=== PATIENT | female | born 1980 | race Caucasian/White ===

== ENCOUNTER 2016-12-26 14:51 | Emergency (ER) | payer MEDICAID, OTHER ==
[2016-12-26 14:51] VITALS: BMI 40.7
[2016-12-26 15:01] VITALS: TEMP 98.1
[2016-12-26] MEDS ORDERED: Sodium Chloride 0.9% 1,000 ML IV STA (15:22)
--- NOTE | 2016-12-26 15:35 | C.PDOC ---
History Of Present Illness 12/26/2016 Lilliam Sears is a 36 y/o female, whose past medical history includes gastritis , presents to the ED complaining of left sided head pain for one week that has been intermittent. Patient reports that she has light sensitivity and dizziness that is worse with movement. In addition patient says she has numbness on her arms. Patient denies fever, chills, cough, nausea, vomiting, diarrhea, or abdominal pain. Patient also reports mild chest discomfort on the left side that began yesterday morning. Time Seen by Provider: 12/26/16 15:06 Chief Complaint (Nursing): Headache History Per: Patient History/Exam Limitations: no limitations Onset/Duration Of Symptoms: Days (7 days), Intermittent Episodes Current Symptoms Are (Timing): Still Present Preceeding Symptoms: Visual Disturbances Past Medical History Reviewed: Historical Data, Nursing Documentation, Vital Signs Vital Signs: Last Vital Signs Temp 98.1 F 12/26/16 14:59 Pulse 80 12/26/16 14:59 Resp 20 12/26/16 14:59 BP 112/77 12/26/16 14:59 Pulse Ox 96 12/26/16 15:41 - Medical History PMH: Gastritis - [facility] Procedures LOW CERVICAL (09/13/14) Family History: States: Unknown Family Hx - Social History Hx Alcohol Use: No Hx Substance Use: No - Immunization History Hx Tetanus Toxoid Vaccination: Yes Hx Influenza Vaccination: No Hx Pneumococcal Vaccination: No Review Of Systems Constitutional: Negative for: Fever Cardiovascular: Positive for: Chest Pain (mild chest discomfort on left side) Gastrointestinal: Negative for: Nausea, Vomiting, Abdominal Pain Genitourinary: Negative for: Dysuria, Frequency Neurological: Positive for: Headache (left sided head pain), Dizziness Physical Exam - Physical Exam Additional Physical Exam Comments: Constitutional: No acute distress. Head: Normocephalic. Atraumatic. Eyes: PERRL. No Nystagmus. ENT: Moist mucous membranes. Neck: Supple. Cardiovascular: Regular rate. Radial pulses 2+ bilaterally. Chest: No tenderness. Respiratory: Clear to auscultation bilaterally. GI: Soft. Nontender. Nondistended. Back: No CVA tenderness. Musculoskeletal: No tenderness or swelling of extremities. Skin: No rash. Neurologic: Alert, no focal deficit. Oriented x 3. Cranial nerves II-XII intact. Sensation to light touch intact bilaterally. Motor 5/5 x 4. Gait normal. Romberg negative. Finger to nose, heel to wolfe, and rapid alternating movements normal. kernig and brudzinski negative. Negative Union-Hallpike. ED Course And Treatment - Laboratory Results Result Diagrams: 12/26/16 15:53 12/26/16 15:53 O2 Sat by Pulse Oximetry: 96 (air room) Pulse Ox Interpretation: Normal Medical Decision Making Medical Decision Makin12/26/2016 Impression: 36 y/o female with left sided head pain and dizziness. Plan: -- CXR -- Labs -- Urinalysis -- Antivert, Reglan, Sodium Chloride, Toradol, and Tylenol -- Reassess and disposition Patient states she feels much better after 2.5 hours in ED and would like to go home. Will discharge, instructed to f/u with PMD, instructed to return to the ED for worsening pain, fever, stiff neck, intractible vomiting, or any other problem. Disposition - Disposition Referrals: Shaik Bradley MD [Staff Provider] - Disposition: HOME/ ROUTINE Disposition Time: 17:19 Condition: STABLE Prescriptions: Famotidine [Pepcid] 1 tab PO BID #14 tab Ibuprofen [Motrin] 600 mg PO Q6 #25 tab Ondansetron ODT [Zofran ODT] 4 mg PO Q8 #12 odt Instructions: Acute Headache (ED) Forms: [facility] (Belarusian) - Clinical Impression Clinical Impression: Headache - Scribe Statement The provider has reviewed the documentation as recorded by the Scribe 12/26/2016 Scribe Attestation: Joyce Vizcaino MD Scribe Attestation: All medical record entries made by the Scribe were at my direction and personally dictated by me. I have reviewed the chart and agree that the record accurately reflects my personal performance of the history, physical exam, medical decision making, and the department course for this patient. I have also personally directed, reviewed, and agree with the discharge instructions and disposition.
[2016-12-26] MEDS ORDERED: Sodium Chloride 0.9% 1,000 ML ONE (15:37)
[2016-12-26 16:01] LABS: BASO # 0.1 K/uL (0.0-0.2); EOS # 0.1 K/uL (0.0-0.7); EOS % 0.8 % (0.0-4.0); HEMATOCRIT 35.9 % (34.0-47.0); LYMPH # 3.9 K/uL (1.0-4.3); LYMPH % 28.2 % (20.0-40.0); MEAN CELL VOLUME 81.1 fL (81.0-99.0); MEAN CORPUSCULAR HEMOGLOBIN 26.6 pg (27.0-31.0); MEAN CORPUSCULAR HGB CONC 32.8 g/dL (33.0-37.0); MEAN PLATELET VOLUME 8.1 fL (7.2-11.7); MONO % 6.8 % (0.0-10.0); RED CELL DISTRIBUTION WIDTH 16.3 % (11.5-14.5)
[2016-12-26 16:08] LABS: CHLORIDE 103 mmol/L (98-107)
[2016-12-26 16:09] LABS: POTASSIUM 4.6 mmol/L (3.6-5.2); SODIUM 137 mmol/L (132-148)
[2016-12-26 16:11] LABS: AST/SGOT 30 U/L (14-36); BILIRUBIN,TOTAL 0.7 mg/dL (0.2-1.3); BLOOD UREA NITROGEN 10 mg/dL (7-17); CARBON DIOXIDE 22 mmol/L (22-30); GFR AFRICAN-AMERICAN > 60; TOTAL PROTEIN 7.8 g/dL (6.3-8.3)
[2016-12-26 16:12] LABS: ALKALINE PHOSPHATASE 104 U/L (38-126); ALT/SGPT 30 U/L (9-52); CALCIUM 8.8 mg/dl (8.6-10.4); GLUCOSE,RANDOM 75 mg/dL (65-105)
[2016-12-26 16:25] LABS: URINE BILIRUBIN NEGATIVE (NEGATIVE); URINE BLOOD 1+ (NEGATIVE); URINE COLOR Yellow (YELLOW); URINE GLUCOSE (UA) NORMAL (Normal); URINE KETONE NEGATIVE (NEGATIVE); URINE LEUKOCYTE ESTERASE TRACE Leu/uL (Negative); URINE PROTEIN NEGATIVE (NEGATIVE); URINE UROBILINOGEN NORMAL mg/dL (0.2-1.0); WBC URINE 1 /hpf (0-5)
[2016-12-26 17:37] VITALS: BP 131/83; PULSE 75; RESP 18; O2SAT 100
--- NOTE | 2016-12-26 17:37 | RAD ---
HISTORY: chest pain COMPARISON: Prior chest radiographs 11/20/2012 TECHNIQUE: Chest PA and lateral FINDINGS: LUNGS: Diminished history volume identified. No acute infiltrate. PLEURA: No significant pleural effusion identified. No pneumothorax apparent. CARDIOVASCULAR: Upper limits of normal cardiac silhouette may be a function of diminished inspiratory volume. Pulmonary vascular appears normal nevertheless. OSSEOUS STRUCTURES: No significant abnormalities. VISUALIZED UPPER ABDOMEN: Normal. OTHER FINDINGS: None. IMPRESSION: Diminished inspiratory volume. No acute infiltrate or pleural effusion identified bilaterally.
== END 2016-12-26 17:37 | disposition home or self-care (01) ==
LOC: C.ER 14:51
DX: R51 Headache (principal)
CPT/HCPCS: 71020; 80053; 81001; 82550; 82553; 84484; 84703; 85025; 96361; 96374; 96375; 99285; J1885; J2765; J7040

== ENCOUNTER 2018-01-02 11:33 | Emergency (ER) | payer MEDICAID ==
[2018-01-02 11:51] VITALS: BMI 36.9
[2018-01-02 12:18] LABS: SQUAMOUS EPITHIAL 4 /hpf (0-5); URINE BILIRUBIN NEGATIVE (NEGATIVE); URINE BLOOD NEGATIVE (NEGATIVE); URINE CLARITY Hazy (Clear); URINE COLOR Amber (YELLOW); URINE GLUCOSE (UA) NORMAL (Normal); URINE LEUKOCYTE ESTERASE NEG Leu/uL (Negative); URINE PROTEIN NEGATIVE (NEGATIVE); URINE UROBILINOGEN NORMAL mg/dL (0.2-1.0)
[2018-01-02 12:21] LABS: HCG,QUALITATIVE URINE POSITIVE (NEGATIVE)
--- NOTE | 2018-01-02 12:41 | C.PDOC ---
History Of Present Illness 37 y/o female presents to the ED complaining of left-sided abdominal pain since last night. Associated with dysuria. Patient states last week she had a positive home test, but has not had any care or seen an OB yet. LMP was 11/16/17. Otherwise she denies any vomiting, diarrhea, vaginal bleeding, discharge, fever, or chills. Prior surgical history is significant for x2 and bariatric surgery a few months ago. Time Seen by Provider: 01/02/18 12:16 Chief Complaint (Nursing): Female Genitourinary History Per: Patient History/Exam Limitations: no limitations Onset/Duration Of Symptoms: Days Current Symptoms Are (Timing): Still Present Associated Symptoms: Urinary Symptoms Abnormal Vaginal Bleeding: No : 3 Para: 2 Miscarriage: 0 Past Medical History Reviewed: Historical Data, Nursing Documentation, Vital Signs Vital Signs: Last Vital Signs Temp 98.9 F 01/02/18 15:14 Pulse 65 01/02/18 15:14 Resp 16 01/02/18 15:14 BP 108/69 01/02/18 15:14 Pulse Ox 99 01/02/18 15:27 - Medical History PMH: Gastritis Surgical History: Other Surgeries: Bariatric surgery - [facility] Procedures LOW CERVICAL (09/13/14) Family History: States: Unknown Family Hx - Social History Hx Alcohol Use: No Hx Substance Use: No - Immunization History Hx Tetanus Toxoid Vaccination: Yes Hx Influenza Vaccination: No Hx Pneumococcal Vaccination: No Review Of Systems Except As Marked, All Systems Reviewed And Found Negative. Constitutional: Negative for: Fever, Chills Eyes: Negative for: Vision Change Cardiovascular: Negative for: Chest Pain Respiratory: Negative for: Shortness of Breath Gastrointestinal: Positive for: Abdominal Pain. Negative for: Vomiting, Diarrhea Genitourinary: Positive for: Dysuria. Negative for: Vaginal Discharge, Vaginal Bleeding Musculoskeletal: Negative for: Back Pain Neurological: Negative for: Weakness, Headache, Dizziness Physical Exam - Physical Exam Appears: Non-toxic, No Acute Distress Skin: Normal Color, Warm, Dry Head: Atraumatic, Normacephalic Eye(s): bilateral: Normal Inspection, PERRL, EOMI Nose: Normal Oral Mucosa: Moist Neck: Normal ROM Chest: Symmetrical Cardiovascular: Rhythm Regular, No Murmur Respiratory: Normal Breath Sounds, No Rhonchi, No Wheezing, Other (NARD) Gastrointestinal/Abdominal: Soft, Tenderness (mild left pelvic and LLQ tenderness), No Distention, No Guarding Back: Normal Inspection, No CVA Tenderness, No Vertebral Tenderness Extremity: Bilateral: Atraumatic, Normal Color And Temperature, Normal ROM Neurological/Psych: Oriented x3, Normal Speech ED Course And Treatment - Laboratory Results Result Diagrams: 01/02/18 12:47 01/02/18 12:47 O2 Sat by Pulse Oximetry: 99 (RA) Pulse Ox Interpretation: Normal - CT Scan/US OB Ultrasound Other Rad Studies (CT/US): Read By Radiologist, Radiology Report Reviewed CT/US Interpretation: Accession No. : [id number]. Patient Name / ID : YARY MARTINI / [id number]. Exam Date : 01/02/2018 13:15:23 ( Approved ). Study Comment : Sex / Age : F / 37Y. Creator : Mahesh Thorpe MD. Dictator : Oracle Adf Developer : Preventive Maintenance Coordinator : Mahesh Thorpe MD. Approver2 : Report Date : 01/02/2018 14:57:52. My Comment : . Date of service: 2017. PROCEDURE: OB Pelvic Ultrasound. HISTORY: Left pelvic pain. LMP: . COMPARISON: Comparison made with prior pelvic ultrasound 09/26/2015. FINDINGS: UTERUS: Gestational sac: MSD = 3.1 cm = 8 weeks 1 day. pole : CRL = 1.56 cm = 8 weeks 0 day. Yolk sac: ? 0.46 cm. Heart rate: 172 bpm. age (Ultrasound estimated): 8 weeks 1 day 0 weeks 4 days. Hattie- gestational hemorrhage: None. Date of delivery (Ultrasound estimated) : 2018. Uterus measures 10.6 x 7.4 x 7.8 cm. Normal in size and appearance. Retroverted. Small anterior lower uterine body fibroid measuring 2.6 x 1.8 x 2.6 cm. CERVIX: Measures 4.58 cm. Long and closed. No cervical abnormality seen. RIGHT OVARY: Measures 4.0 x 4.4 x 4.0 cm. No mass lesion. Normal flow. Small cyst measuring 2.1 x 2.5 x 2.2 cm. LEFT OVARY: Not visualized. FREE FLUID: .No free fluid. OTHER FINDINGS: None. IMPRESSION: Single living intrauterine gestation estimated approximately 8 weeks 4 day 0 weeks 1 day. Heart rate documented at 172 BPM. Small anterior uterine fibroid. Small right ovarian cyst left ovary not visualized the Medical Decision Making Medical Decision Making: Impression: Abdominal pain during , rule out ectopic Initial Plan: --Blood work with Beta quant --UA --Urine HCG --/OB US Patient advised that the focus of ER evaluation is to rule out ectopic. If patient continues to have persistent symptoms, she needs to follow up with [facility]. Labs reviewed: Beta-HCG 13954.00, UA is negative. Ultrasound results discussed w/ patient. Provided with copy of report. Disposition Counseled Patient/Family Regarding: Studies Performed, Diagnosis, Need For Followup - Disposition Referrals: YOUR,OBGYN [Other] [facility] [Outside] [facility] [Outside] Disposition: HOME/ ROUTINE Disposition Time: 15:20 Condition: GOOD Instructions: Threatened Miscarriage (DC) Forms: [facility] (Kiswahili) Print Language: SERBIAN - Clinical Impression Clinical Impression: Threatened miscarriage - Scribe Statement The provider has reviewed the documentation as recorded by the Izzy Palma Provider Attestation: All medical record entries made by the Izzy were at my direction and personally dictated by me. I have reviewed the chart and agree that the record accurately reflects my personal performance of the history, physical exam, medical decision making, and the department course for this patient. I have also personally directed, reviewed, and agree with the discharge instructions and disposition.
[2018-01-02 12:57] LABS: BASO # 0.1 K/uL (0.0-0.2); BASO % 0.8 % (0.0-2.0); EOS % 0.2 % (0.0-4.0); HEMOGLOBIN 10.9 g/dL (11.0-16.0); LYMPH % 21.3 % (20.0-40.0); MEAN CELL VOLUME 82.9 fL (81.0-99.0); MEAN CORPUSCULAR HEMOGLOBIN 27.9 pg (27.0-31.0); MEAN CORPUSCULAR HGB CONC 33.7 g/dL (33.0-37.0); MEAN PLATELET VOLUME 8.6 fL (7.2-11.7); MONO # 0.6 K/uL (0.0-0.8); MONO % 6.5 % (0.0-10.0); NEUT # 6.7 K/uL (1.8-7.0); NEUT % 71.2 % (50.0-75.0); RBC 3.91 Mil/uL (3.80-5.20); RED CELL DISTRIBUTION WIDTH 17.2 % (11.5-14.5); WHITE BLOOD COUNT 9.5 K/uL (4.8-10.8)
[2018-01-02 13:15] LABS: ALB/GLOB RATIO 1.2 (1.0-2.1); ALBUMIN 3.5 g/dL (3.5-5.0); ALT/SGPT 32 U/L (9-52); AST/SGOT 12 U/L (14-36); BLOOD UREA NITROGEN 8 mg/dL (7-17); CALCIUM 9.1 mg/dl (8.6-10.4); GFR NON-AFRICAN AMERICAN > 60
--- NOTE | 2018-01-02 15:00 | US ---
Date of service: 01/02/2018 PROCEDURE: OB Pelvic Ultrasound HISTORY: Left pelvic pain LMP: 11/16/2017 COMPARISON: Comparison made with prior pelvic ultrasound 09/26/2015. FINDINGS: UTERUS: Gestational sac: MSD = 3.1 cm = 8 weeks 1 day. pole: CRL = 1.56 cm = 8 weeks 0 day Yolk sac: ? 0.46 cm Heart rate: 172 bpm. age (Ultrasound estimated): 8 weeks 1 day 0 weeks 4 days Hattie-gestational hemorrhage: None. Date of delivery (Ultrasound estimated) : 08/13/2018 Uterus measures 10.6 x 7.4 x 7.8 cm. Normal in size and appearance. Retroverted. Small anterior lower uterine body fibroid measuring 2.6 x 1.8 x 2.6 cm CERVIX: Measures 4.58 cm. Long and closed. No cervical abnormality seen. RIGHT OVARY: Measures 4.0 x 4.4 x 4.0 cm. No mass lesion. Normal flow. Small cyst measuring 2.1 x 2.5 x 2.2 cm LEFT OVARY: Not visualized FREE FLUID: .No free fluid. OTHER FINDINGS: None. IMPRESSION: Single living intrauterine gestation estimated approximately 8 weeks 4 day 0 weeks 1 day. Heart rate documented at 172 BPM. Small anterior uterine fibroid. Small right ovarian cyst left ovary not visualized the
[2018-01-02 15:15] VITALS: BP 108/69; PULSE 65; RESP 16
[2018-01-02 15:17] VITALS: TEMP 98.9
[2018-01-02 15:21] VITALS: O2SAT 99
== END 2018-01-02 15:34 | disposition home or self-care (01) ==
LOC: C.ER 11:33
DX: O20.0 Threatened abortion (principal); Z3A.08 8 weeks gestation of pregnancy

== ENCOUNTER 2018-08-01 07:22 | Inpatient (IN) | payer MEDICAID ==
[2018-08-01 07:37] VITALS: BMI 35.1
[2018-08-01] MEDS ORDERED: Sodium Citrate/Citric Acid 15 ml Sol PO ONE (07:45)
[2018-08-01] MEDS ORDERED: Lactated Ringer's 1,000 ML IV ONE (07:45)
[2018-08-01] MEDS ORDERED: cefOXitin IV 2 gm in Dextrose 2 GM/50 ML BAG IVPB ONE ×2 (07:45→08:43)
[2018-08-01 08:17] LABS: BASO % 0.4 % (0.0-2.0); EOS # 0.1 K/uL (0.0-0.7); EOS % 0.5 % (0.0-4.0); HEMOGLOBIN 11.2 g/dL (11.0-16.0); LYMPH # 2.8 K/uL (1.0-4.3); LYMPH % 24.1 % (20.0-40.0); MEAN CELL VOLUME 86.5 fL (81.0-99.0); MEAN CORPUSCULAR HEMOGLOBIN 27.5 pg (27.0-31.0); MEAN CORPUSCULAR HGB CONC 31.8 g/dL (33.0-37.0); MEAN PLATELET VOLUME 8.4 fL (7.2-11.7); MONO # 0.6 K/uL (0.0-0.8); MONO % 5.5 % (0.0-10.0); NEUT # 8.1 K/uL (1.8-7.0); NEUT % 69.5 % (50.0-75.0); RBC 4.07 Mil/uL (3.80-5.20); RED CELL DISTRIBUTION WIDTH 16.7 % (11.5-14.5); WHITE BLOOD COUNT 11.7 K/uL (4.8-10.8)
[2018-08-01 08:20] LABS: SQUAMOUS EPITHIAL 27 /hpf (0-5); URINE BACTERIA RARE (<OCC); URINE BILIRUBIN NEGATIVE (NEGATIVE); URINE BLOOD NEGATIVE (NEGATIVE); URINE CLARITY Hazy (Clear); URINE COLOR Amber (YELLOW); URINE GLUCOSE (UA) NORMAL (Normal); URINE LEUKOCYTE ESTERASE NEG Leu/uL (Negative); URINE PROTEIN 1+ mg/dL (NEGATIVE)
[2018-08-01 08:36] LABS: BARBITURATES, UR NEGATIVE (NEGATIVE); BENZODIAZEPINES, UR NEGATIVE (NEGATIVE); OPIATES, UR NEGATIVE (NEGATIVE); PHENCYCLIDINE, UR NEGATIVE (NEGATIVE)
[2018-08-01 08:37] LABS: ALB/GLOB RATIO 1.2 (1.0-2.1); ALBUMIN 3.5 g/dL (3.5-5.0); AST/SGOT 16 U/L (14-36); BLOOD UREA NITROGEN 7 mg/dL (7-17); CALCIUM 8.8 mg/dl (8.6-10.4); GFR NON-AFRICAN AMERICAN > 60
[2018-08-01 08:39] LABS: ALT/SGPT < 6 U/L (9-52)
[2018-08-01] MEDS ORDERED: Sodium Citrate/Citric Acid 15 ml Sol ONE (08:42)
[2018-08-01] MEDS ORDERED: Oxytocin 10 Units/ml Inj ONE ×2 (08:43→10:31)
[2018-08-01] MEDS ORDERED: Oxytocin 20 units in LR 2,000 ML IV ONE (08:43)
[2018-08-01] MEDS ORDERED: EPINEPHrine 1 mg/ml (1:1000) Inj ONE (09:03)
[2018-08-01] MEDS ORDERED: Morphine 1 mg/ml preservative-free Inj(Duramorph) ONE (09:03)
[2018-08-01] MEDS ORDERED: Naloxone 0.4 mg/ml Inj (Adult) IVP PRN (11:06)
--- NOTE | 2018-08-01 11:51 | OBDS ---
DELIVERY PERSONNEL Delivery Doctor: Robert Amezquita DO Scrub Nurse: Velma Gastelum Geneticist: Yesenia Leahy RN Anesthesiologist: John Christopher MD MATERNAL INFORMATION Delivery Anesthesia: Spinal Medications in Delivery: pitocin 40units x2 as per MD order Placenta Cultured: No Maternal Complications: None Provider Comments: Repeat LTC Section with delivery of a viable Male from TASHA posit ion and after reducing a loose CNC x 1. Apgars 9_9 and BW 8lbs. Right Fallopian Tubal Ligation with EndoSeal. No Left Fallopian tube identified and pt gave Hx of left adnexa removed in 2009. Extensive RICKY required EBL 600 mls Pt and tolerated the procedure well and both left the OR in Stable and Stisfactory conditi on. Dr. Contreras assisted the entire case from beginning to end. Dr Valenzuela, Engineering Specialist Technician attended the LABOR SUMMARY EDC: 08/06/2018 00:00 No. Babies in Womb: 1 Attempted: No Labor Anesthesia: None LABOR INFORMATION Reason for Induction: Not Applicable Other Ripening Agents: n/a Oxytocin: N/A Group B Beta Strep: Negative Steroids Given: None Reason Steroids Not Administered: Not Applicable MEMBRANES Membranes Rupture Method: Artificial Rupture of Membranes: 08/01/2018 09:38 Length of Rupture (hrs): 0.00 Amniotic Fluid Color: Clear Amniotic Fluid Amount: Moderate Amniotic Fluid Odor: Normal STAGES OF LABOR Stage 3 hrs: 0 Stage 3 min: 1 CSECTION DELIVERY Primary Indication: Repeat Elective Secondary Indication: Repeat Elective CSection Urgency: Elective CSection Incidence: Repeat Labor: No Labor Elective: Elective CSection Incision: Lower Uterine Transverse BABY A INFORMATION Infant Delivery Date/Time: 08/01/2018 09:38 Method of Delivery: Born in Route : No : N/A Forceps: N/A Vacuum Extraction: N/A Shoulder Dystocia : No SHOULDER DYSTOCIA BABY A Delivery Date/Time: 08/01/2018 09:38 PRESENTATION/POSITION BABY A Presentation: Cephalic Cephalic Presentation: Vertex Vertex Position: Right Occipital Anterior Breech Presentation: N/A PLACENTA INFORMATION BABY A Placenta Delivery Time : 08/01/2018 09:39 Placenta Method of Delivery: Manual Removal Placenta Status: Delivered SCORES BABY A Heart Rate 1 min: >100 bpm Resp Effort 1 min: Good Cry Reflex Irritability 1 min: Cough or Sneeze or Pulls Away Muscle Tone 1 min: Active Motion Color 1 min: Body Mead, Extremities Blue SCORE 1 MIN: 9 Heart Rate 5 min: >100 bpm Resp Effort 5 min: Good Cry Reflex Irritability 5 min: Cough or Sneeze or Pulls Away Muscle Tone 5 min: Active Motion Color 5 min: Body Mead, Extremities Blue SCORE 5 MIN: 9 INFORMATION BABY A Gestational Age at Delivery: 39.2 Gestational Status: Term Infant Outcome : Liveborn Infant Condition : Stable Sex: Male IDENTIFICATION/MEDS BABY A ID Band Number: [id number] ID Band Location: Left Leg; Left Arm Sensor Applied: Yes Sensor Number: [id number] Sensor Location : Cord Clamp Vitamin K Given : Left Thigh Erythromycin Given: Given Both Eyes WEIGHT/LENGTH BABY A Infant Birthweight (gms): 3620 Weight (lb): 8 Weight (oz): 0 Infant Length Inches: 19.00 Length cms: 48.3 CORD INFORMATION BABY A No. Cord Vessels: 3 Nuchal Cord : Around Neck x1, Loose Cord pH Baby Arterial: 7.19 Cord pH Baby Venous: 7.28 Cord Blood Taken: Yes Infant Suction: Mouth; Nose ASSESSMENT BABY A Infant Complications: None Physical Findings at Delivery: Within Normal Limits Infant Respirations: Appears Normal Poultry Sexer/ALS Called : Yes Care By: phong rabago rn Transferred To: Remains with Mother
[2018-08-01] MEDS ORDERED: Oxycodone/Acetaminophen 5/325 mg Tab PO PRN (13:44)
[2018-08-01] MEDS ORDERED: Oxytocin 30 UNIT in NS 500 ml 30 UNITS/500 ML BAG IV SCH (14:00)
--- NOTE | 2018-08-01 14:32 | OBADHP ---
Datetime: 08/01/2018 08:53 Admit Comment, IP Provider: 38 y/o F at 39.2 weeks gestation presented to L_D for schedul ed repeat . Pt has been followed prenatally by [facility]. She has been taking pren atal vitamins, iron. She reports she had felt baby moving and felt contractions. She reports no acute complaints curren tly. She is denying fevers, chills, headache, dizziness, chest pain, palpitationns, shortness of carmel th, nausea, vomiting, constipation, diarrhea, dysuria, hematuria. Further denies LOF, VB or VD. OBHx: . 2 previous term pregnancies. 09/13/2014: 7.5lb F delivered via primary C/S @ 38wks. 10/02/2006: 7 lb boy delivered at 40wks via repeat C/S. First baby delivered via C/S d/t arrest of dila tion. Both children delivered at [facility] GynHx: Menarche: 12 y/o. LMP 11/16/17. YAIMA: 08/06/18. Regular periods every 30 days lasting 4-5 days, using about 10-12 pads. 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 Reports p revious IUD (doesn't recall which type) that was removed prior to this . PMH: Previous (+) PPD, CXR negative. All: NKDA PSH: 09/29/2017: "Gastric bypass", [place]. Reports no complications. 2009: Ovarian lemon-sized "myoma" removal, [place], denies complications. FH: Non-contributory SH: Denies smoking, ETOH, illicit drug use Hosp: denies recent hospitalizations Meds: Pre-carlos vitamins, pantoprazole 40mg, Ferrous sulfate OBGYN: [facility] Tool Grinder: Dr. Jim Amezquita. Vitals: T: BP: 106/78 P:94 SpO2:100% Physical Exam: As Noted Labs: 11.7>11.2/35.2<289 (08/01/18) Utox: (-) Assessment: 38 y/o AMA F at 39 weeks gestation presenting to L_D for repeat and BTL Plan: -pre-op CBC/CMP/U/A/Utox -LR 1L IVF bolus -empiric cefoxitin -Anesthesia consult -NST Reactive -obtain consent for C/S _ bilateral tubal ligation. Risks/benefits/alternatives have been explaine d in detail for both procedures Portuguese Interpretor # [id number] Case discussed with Dr. Alirio Aguilar PGY1 Pt seen and examined with Dr. Hardin and all of his findings and POC were fully discussed and agree d on. Pelvic Type - PN: Not Done Extremities - PN: Normal Abdomen - PN: Normal Back - PN: Not Done Breast - PN: Not Done Lungs - PN: Normal Heart - PN: Normal Thyroid - PN: Normal Neurologic - PN: Normal HEENT - PN: Normal General - PN: Normal Presentation-Admit: Vertex FHR - Baseline A Provider: 140 Membranes, Provider: Intact Comments, ACOG Physical Exam: Gen: WDWN, NAD Neuro: AxO x 3, No FND HEENT: Normocephalic, atraumatic, EOMI CV: RRR, S1/S2 present, no m/r/g Pulm: CTA b/l, u/l lobes Abd: Soft, non-distended, fundal height 38cm above PS. Previous low transverse incision site c/d/i EXT: trace non-pitting edema Gestation - Est Wks by US: 39.2 Vital Signs Provider: Reviewed IP Chief Complaint: Scheduled Section NICHD Variability Prov Fetus A: Moderate 6-25bpm NICHD Accel Fetus A IP Provider: 10X10 FHR Category Provider Fetus A: Category I NICHD Decel Fetus A IP Provider: None Genitourinary Exam: Not Done DTRs - PN: Not Done EGA AdmitDate IP: 39.2 IP Adm Impression: Term, intrauterine ; No Active Labor; Intact Membranes IP Admit Plan: Admit to unit; Initiate Section protocol
[2018-08-02 07:08] LABS: HEMOGLOBIN 9.5 g/dL (11.0-16.0); MEAN CELL VOLUME 86.5 fL (81.0-99.0); MEAN CORPUSCULAR HEMOGLOBIN 28.2 pg (27.0-31.0); MEAN CORPUSCULAR HGB CONC 32.6 g/dL (33.0-37.0); MEAN PLATELET VOLUME 8.2 fL (7.2-11.7); RBC 3.37 Mil/uL (3.80-5.20); RED CELL DISTRIBUTION WIDTH 16.3 % (11.5-14.5)
[2018-08-02] MEDS: Prenatal Multivit/Folic Acid/Iron Tab PO SCH (10:04)
--- NOTE | 2018-08-02 21:18 | OBPPN ---
Datetime: 08/02/2018 07:46 PP Pain Prov: Within normal limits PP Nausea Prov: Denies PP Flatus Prov: No PP BM Prov: No PP Breasts Prov: Not Done PP Heart Prov: Normal PP Lungs Prov: Normal PP Abdomen/Uterus Prov: Normal PP Lochia Prov: Normal PP Vulva/Perineum Prov: Not Done PP CVA Tenderness Prov: Not Done PP Extremities Prov: Normal PP C/S Incision Prov: Normal PP Progress Prov: Normal PP Comments Phys Exam Prov: General: AAO X 3, NAD Lungs: CTA b/l Heart: RRR, normal S1, S2 Abdomen: Soft, non-tender, non-distended. Fundal height one finger breadth below the umbilicus, fi rm, and non-tender. [place] in place, dressing C/D/I Extremities: No edema or tenderness noted Dressing clean, dry and intact PP Impression Prov: Normal progression PP Plan Prov: Continue present management PP Progress Note Prov: Patient was seen and examined at bedside. No acute events overnight as per pa susu and nursing staff. Patient is not complaining of any pain, she did not ask for Motrin or Percoc et overnight. Lochia is minimal, she admits to changing 3 pads yesterday. She is tolerating diet with out nausea or vomiting. She denies having any bowel movements but admits to flatus. She is ambulating from bed to chair and to the bathroom without any issues. Baby is with good latch. She denies fevers, chills, dizziness, shortness of breath, chest pain, abdominal pain, or urinary sympto ms. VS: T: 97.1, HR: 87, BP: 92/60, O2: 99% General: AAO X 3, NAD Lungs: CTA b/l Heart: RRR, normal S1, S2 Abdomen: Soft, non-tender, non-distended. Fundal height one finger breadth below the umbilicus, fi rm, and non-tender. [place] in place, dressing C/D/I Extremities: No edema or tenderness noted Assessment: Patient is a 38 year old female s/p repeat and BTL POD #1. Patient i s stable and afebrile. Plan: - Pain controlled with Motrin - Encourage ambulation, hydration, and - Incentive spirometer use - Diet advanced to regular - Stable and Satisfactory condition and recovery - Continue routine post-operative care Patient seen and case discussed with attending, Dr. Amezquita. Ismael Henry, PGY-1 Pt seen and examined with Dr. Guevara and all of his findings and POC were fully discussed with him and agreed on. IP PP Procedures: Tubal Ligation Vital Signs Provider PP: Reviewed; Within Normal Limits
[2018-08-03] MEDS: Prenatal Multivit/Folic Acid/Iron Tab PO SCH (09:18)
--- NOTE | 2018-08-03 17:59 | OBPPN ---
Datetime: 08/03/2018 07:49 PP Pain Prov: Within normal limits PP Nausea Prov: Denies PP Flatus Prov: Yes PP BM Prov: Yes PP Breasts Prov: Not Done PP Heart Prov: Normal PP Lungs Prov: Normal PP Abdomen/Uterus Prov: Normal PP Lochia Prov: Normal PP Vulva/Perineum Prov: Not Done PP CVA Tenderness Prov: Normal PP Extremities Prov: Normal PP C/S Incision Prov: Normal PP Progress Prov: Normal PP Comments Phys Exam Prov: General: WDWN, NAD Neuro: No focal deficit, AAO x3 Cardio: RRR, normal S1, S2, no murmurs/rubs/gallops Pulm: CTA b/l upper/lower lobes Abdomen: Soft, non-tender, non-distended. Fundal height one FB below the umbilicus, firm, and non- tender. Incision site well-approximated with sienna. Site C/D/I Extremities: trace non-pitting edema PP Impression Prov: Normal progression PP Plan Prov: Continue present management PP Progress Note Prov: Patient was seen and examined at bedside. No acute events overnight as per pa susu and nursing staff. Patient is not complaining of any pain currently but reports minimal pain 5/ 10 at night controlled with Motrin. Vaginal bleeding is minimal. She is tolerating diet and fluids. S he reports of having one bowel movement this morning and flatus. She is ambulating from bed to chair, to the bathroom, and to the hallway without any problem. Baby is on both breasts with good latch. She denies any fevers, chills, headache, dizziness, shortness of breath, chest pain, palp itations, nausea, vomiting, abdominal pain, dysuria. VS: T: 97.9, HR: 89, BP: 100/56, O2: 99% PE: as noted Labs: 15 > 9.5/29.2 > 242 Assessment: -38 year old AMA female POD2 s/p repeat , unilateral R sided tubal ligation _ ext ensive lysis of adhesions. -Patient hemodynamically stable, afebrile, progressing appropriately per post-operative care Plan: - Continue iron, vitamins - Continue analgesics - Encourage IS, hydration, ambulation, breast feeding - Continue to monitor incision site - Continue routine post-operative care - Plan for discharge on POD3 Case discussed with Dr. Waldo Aguilar PGY1 Attending Note: patient seen, evaluated and examined by me with the Resident. I agree with the abo ve as documented. Vital Signs Provider PP: Reviewed
[2018-08-04 00:21] VITALS: RESP 20; O2SAT 99
[2018-08-04] MEDS: Prenatal Multivit/Folic Acid/Iron Tab PO SCH (09:49)
[2018-08-04 18:57] VITALS: BP 100/67; PULSE 79; TEMP 97.2
== END 2018-08-04 13:00 | disposition home or self-care (01) | DRG 371 ==
LOC: C.4D 07:22 → C.4M 13:07
PROVIDERS: ADMIT Obstetrics & Gynecology; ATTEND Obstetrics & Gynecology
PROC: 10D00Z1 Extraction of Products of Conception, Low, Open Approach (ICD-10-PCS; principal; 2018-08-01)
PROC: 0UB50ZZ Excision of Right Fallopian Tube, Open Approach (ICD-10-PCS; 2018-08-01)
DX: O34.211 Maternal care for low transverse scar from previous cesarean delivery (principal); O69.81X0 Labor and delivery complicated by cord around neck, without compression, not applicable or unspecified; O99.844 Bariatric surgery status complicating childbirth; Z37.0 Single live birth; Z3A.39 39 weeks gestation of pregnancy; Z30.2 Encounter for sterilization